=== PATIENT | female | born 1955 | race African-American/Black ===

== ENCOUNTER 2024-06-07 01:30 | Emergency (ER) | payer OTHER ==
[~2024-06-07] VITALS: Ht 162.6 cm; Wt 56.7 kg
[2024-06-07 01:38] VITALS: BP 178/83; PULSE 81; RESP 14; TEMP 98.1; O2SAT 95
[2024-06-07 02:34] LABS: FLU A ANTIGEN negative (NEGATIVE); FLU B ANTIGEN NEGATIVE (NEGATIVE)
[2024-06-07 02:48] LABS: BASOPHILS % (AUTO) 0.3 % (0.0-2.0); EOSINOPHILS # (AUTO) 0.1 K/uL (0-0.4); EOSINOPHILS % (AUTO) 2.1 % (0.0-4.0); LYMPHOCYTES # (AUTO) 1.4 K/uL (2.5-16.5); LYMPHOCYTES % (AUTO) 20.2 % (20.5-51.1); MEAN CORPUSCULAR HEMOGLOBIN 24 pg (27-31); MEAN CORPUSCULAR HGB CONC 32 g/dL (33-37); MEAN CORPUSCULAR VOLUME 74.9 fL (80-94); MONOCYTES # (AUTO) 0.5 K/uL (0.8-1.0); MONOCYTES % (AUTO) 7.2 % (1.7-9.3); NEUTROPHILS # (AUTO) 4.8 K/uL (1.8-7.7); NEUTROPHILS % (AUTO) 70.2 % (42.2-75.2); PLATELET COUNT (AUTO) 302 K/uL (140-450); RED BLOOD CELL COUNT(AUTO) 4.13 MIL/uL (4.20-5.40); RED CELL DISTRIBUTION WIDTH 14.2 % (11.6-13.7); WHITE BLOOD COUNT (AUTO) 6.8 K/uL (4.8-10.8)
[2024-06-07] MEDS: ACETAMINOPHEN 325 MG TAB PO ONE (02:51)
[2024-06-07 02:57] LABS: ANION GAP 8.2 (8-16); CALCIUM 8.2 mg/dL (8.5-10.1); CREATININE 1.1 mg/dL (0.6-1.3); POTASSIUM 4.2 mmol/L (3.5-5.1)
[2024-06-07 03:12] LABS: THYROID STIMULATING HORMONE 0.72 uIU/mL (0.34-3.74)
[2024-06-07 04:25] LABS: APPEARANCE,URINE CLEAR (CLEAR); BILIRUBIN,URINE NEGATIVE (NEGATIVE); BLOOD, URINE NEGATIVE (NEGATIVE); COLOR,URINE YELLOW (YELLOW); LEUKOCYTE ESTERASE ,URINE 1+ (NEGATIVE); NITRITE, URINE NEGATIVE (NEGATIVE); PROTEIN,URINE NEGATIVE (NEGATIVE); UGLUCOSE NEGATIVE (NEGATIVE); UROBILINOGEN,URINE 0.2 EU/dL (0.2 - 1)
[2024-06-07 04:32] LABS: BACTERIA,URINE >30 (MANY) /HPF (None Seen); RBC,URINE 0-5 /HPF (0-5); SQUAMOUS EPITHELIAL CELL,UR 4-10 (MOD) /LPF (0-3 (FEW))
[2024-06-07 04:33] LABS: MUCUS,URINE 1+ /LPF (None Seen)
[2024-06-07] MEDS ORDERED: CIPR500T4 PO (04:41)
[2024-06-07 04:52] VITALS: BP 178/83; PULSE 78; RESP 14; TEMP 98.1; O2SAT 98
== END 2024-06-07 04:52 | disposition home or self-care (01) ==
LOC: MED 01:30
DX: N39.0 Urinary tract infection, site not specified (principal); D64.9 Anemia, unspecified; I10 Essential (primary) hypertension; E11.9 Type 2 diabetes mellitus without complications; F32.A Depression, unspecified; Z20.822 Contact with and (suspected) exposure to COVID-19; Z79.899 Other long term (current) drug therapy; Z88.0 Allergy status to penicillin
CPT/HCPCS: 36415; 71045; 73140; 80048; 81001; 82948; 84443; 84484; 85025; 87086; 87426; 87804; 93005; 99285; Q0092